=== PATIENT | male | born 1955 | race Caucasian/White ===

== ENCOUNTER 2023-02-18 08:29 | Emergency (ER) | payer MEDICARE, MEDICAID ==
[~2023-02-18] VITALS: Ht 182.9 cm; Wt 106.8 kg
[~2023-02-18 08:29] MED LIST: ALBU18HF2 INH; FLUT15.87 BOTHNARES; HYDR-3972 PO; LANTUS SQ; ZOLP10TA5 PO
[2023-02-18 08:57] VITALS: BP 158/96; PULSE 74; RESP 16; TEMP 98.4; O2SAT 96
[2023-02-18] MEDS ORDERED: TETanus/Pertussis (Acell)/Diphther VAC/PF (Tdap-Adult) 0.5ml syringe IMVAC ONE (11:10)
== END 2023-02-18 11:41 | disposition home or self-care (01) ==
LOC: ER 08:30
DX: S51.812A Laceration without foreign body of left forearm, initial encounter (principal); Z79.899 Other long term (current) drug therapy; Z79.84 Long term (current) use of oral hypoglycemic drugs; X58.XXXA Exposure to other specified factors, initial encounter; Y93.89 Activity, other specified; Y92.89 Other specified places as the place of occurrence of the external cause; Y99.8 Other external cause status
CPT/HCPCS: 90471; 90715; 99283; A6258

== ENCOUNTER 2024-02-05 11:38 | Emergency (ER) | payer MEDICARE, MEDICAID ==
[~2024-02-05] VITALS: Ht 182.9 cm; Wt 116.0 kg
--- NOTE | 2024-02-05 12:21 | NUR ---
Placed on CR, SPO2 and EtCO2 in preperation for sedation
--- NOTE | 2024-02-05 12:21 | NUR ---
Patient consented for conscious sedation, at bedside
[2024-02-05] MEDS: fentaNYL/PF 50MCG/1 ML 2ML syringe IV ONE (12:30)
[2024-02-05 13:02] VITALS: PULSE 65; RESP 18; O2SAT 95
[2024-02-05] MEDS: ondansetron/PF 4mg/2ml inj IV ONE (13:05)
[2024-02-05] MEDS: ketamine 10mg/ml 20ml inj vial IV ONE (13:06)
[2024-02-05 13:52] VITALS: BP 138/78; PULSE 67; RESP 16; TEMP 98; O2SAT 99
== END 2024-02-05 13:53 | disposition home or self-care (01) ==
LOC: ER 11:38
DX: S43.085A Other dislocation of left shoulder joint, initial encounter (principal); E11.9 Type 2 diabetes mellitus without complications; Z79.899 Other long term (current) drug therapy; Z79.52 Long term (current) use of systemic steroids; Z79.4 Long term (current) use of insulin; W01.0XXA Fall on same level from slipping, tripping and stumbling without subsequent striking against object, initial encounter; Y93.89 Activity, other specified; Y92.89 Other specified places as the place of occurrence of the external cause; Y99.8 Other external cause status
CPT/HCPCS: 23650; 73030; 96374; 96375; 99285; J2405; J3010; J3490; 94760; 99152

== ENCOUNTER 2024-07-24 09:07 | Day surgery (SDC) | payer MEDICARE, MEDICAID ==
[~2024-07-24] VITALS: Ht 182.9 cm; Wt 121.8 kg
[2024-07-24] VITALS (11 sets, daily range): BP systolic 123–177; BP diastolic 70–95; PULSE 62–73; RESP 16; TEMP 97.7; O2SAT 93–95
[2024-07-24] MEDS ORDERED: METF-1203 PO (09:53)
[2024-07-24] MEDS ORDERED: LORazepam 0.5 MG tablet PO PRN (09:55)
[2024-07-24] MEDS ORDERED: ATOR-2 PO (09:55)
[2024-07-24] MEDS ORDERED: nitroGLYCERIN 0.4mg SUBLingual tab SL PRN (09:55)
[2024-07-24] MEDS ORDERED: diphenhydrAMINE 25mg capsule PO PRN (09:55)
[2024-07-24] MEDS ORDERED: normal saline 1,000 ML IV SCH (09:55)
[2024-07-24] MEDS ORDERED: SEMA1PEN3 (09:56)
[2024-07-24 10:07] LABS: BASOPHILS # (AUTO) 0.1 X10'3 (0-0.2); BASOPHILS % (AUTO) 0.9 % (0-1); EOSINOPHILS # (AUTO) 0.2 X10'3 (0-0.9); EOSINOPHILS % (AUTO) 2.3 % (0-6); HEMATOCRIT 49.4 % (42.0-52.0); HEMOGLOBIN 16.7 g/dl (14.0-17.9); LYMPHOCYTES # (AUTO) 1.8 X10'3 (1.1-4.8); LYMPHOCYTES % (AUTO) 26.2 % (21-51); MEAN CORPUSCULAR HGB CONC 33.7 g/dL (33.0-36.5); MEAN PLATELET VOLUME 7.9 FL (7.4-10.4); MONOCYTES # (AUTO) 0.6 X10'3 (0-0.9); MONOCYTES % (AUTO) 8.1 % (2-12); NEUTROPHILS # (AUTO) 4.2 X10'3 (1.8-7.7); NEUTROPHILS % (AUTO) 62.5 % (42-75); PLATELET COUNT 188 X10'3 (140-440); RED BLOOD COUNT 5.37 X10'6 (4.70-6.10); RED CELL DISTRIBUTION WIDTH 14.2 % (11.5-14.5); WHITE BLOOD COUNT 6.8 X10'3 (4.5-11.0)
[2024-07-24 10:16] LABS: ALBUMIN 3.7 G/DL (3.4-5.0); ANION GAP 7 (8-16); BLOOD UREA NITROGEN 15 MG/DL (7-18); BUN/CREATININE RATIO 22.4 (10.0-20.0); CALCIUM 8.5 MG/DL (8.5-10.1); CHLORIDE 101 MMOL/L (99-107); CREATININE 0.67 MG/DL (0.60-1.10); GLUCOSE 162 MG/DL (70-104); SODIUM 137 MMOL/L (135-145); TOTAL CARBON DIOXIDE 28.8 MMOL/L (24-32); eCRCL 114 ML/MIN; eGFR > 90 ML/MIN
[2024-07-24] MEDS ORDERED: midazolam 1 mg/ML 2ml injection ONE (10:19)
[2024-07-24] MEDS ORDERED: fentaNYL/PF 50MCG/1 ML 2ML syringe ONE (10:19)
[2024-07-24] MEDS ORDERED: iohexol 350 MG/ML 50ML vial IV ONE ×2 (10:19→11:33)
[2024-07-24] MEDS ORDERED: LIDOcaine 1% 30ml preserv. free vial ONE (10:20)
[2024-07-24] MEDS ORDERED: iohexol 350MG/ML 100ml bottle IV ONE (10:20)
[2024-07-24 10:21] LABS: APTT 29 SECONDS (22-32); INR 1.1 INR
[2024-07-24] MEDS ORDERED: diphenhydrAMINE 50 mg/ml inj ONE (11:13)
[2024-07-24] MEDS ORDERED: OXAZEpam 15mg capsule PO PRN (12:30)
[2024-07-24] MEDS ORDERED: proCHLORperazine 10 MG/2 ml inj IV PRN (12:30)
[2024-07-24] MEDS ORDERED: HYDROcodone/acetaminophen 10/325mg tab PO PRN (12:30)
[2024-07-24] MEDS ORDERED: ondansetron/PF 4mg/2ml inj IV PRN (12:30)
[2024-07-24] MEDS ORDERED: HYDROcodone/acetaminophen 5mg/325mg tablet PO PRN (12:30)
== END 2024-07-24 17:05 | disposition home or self-care (01) ==
LOC: SSTAY O 09:07
PROVIDERS: ATTEND Internal Medicine Cardiovascular Disease
DX: I25.10 Atherosclerotic heart disease of native coronary artery without angina pectoris (principal); M19.012 Primary osteoarthritis, left shoulder; I10 Essential (primary) hypertension; E11.42 Type 2 diabetes mellitus with diabetic polyneuropathy; J44.9 Chronic obstructive pulmonary disease, unspecified; Z79.4 Long term (current) use of insulin; Z87.891 Personal history of nicotine dependence; Z96.612 Presence of left artificial shoulder joint; Z79.899 Other long term (current) drug therapy; Z79.84 Long term (current) use of oral hypoglycemic drugs; Z79.01 Long term (current) use of anticoagulants
CPT/HCPCS: 36415; 71046; 80048; 82948; 85025; 85610; 85730; 93005; 93458; 93880; 93930; 93970; 99152; 99153; A6258; C1760; J1200; J1644; J2003; J2250; J3010; J7030; Q9967; Z7610

== ENCOUNTER 2025-05-05 05:25 | Observation (INO) | payer MEDICARE, MEDICAID ==
[2025-04-22 11:48] LABS: MEAN PLATELET VOLUME 8.3 FL (7.4-10.4); PRE OP HEMATOCRIT 51.0 % (42.0-52.0); PRE OP HEMOGLOBIN 17.2 g/dL (14.0-17.9); PRE OP PLATELET COUNT 219 X10'3 (140-440); PRE OP WHITE BLOOD COUNT 7.1 10'3 (4.8-10.8); RED CELL DISTRIBUTION WIDTH 15.2 % (11.5-14.5)
[2025-04-22 11:59] LABS: PRE OP INR 1.1 INR; PRE OP PARTIAL THROMB. TIME 31.0 SECONDS (22-32); PRE OP PROTIME 11.1 SECONDS (9.0-12.0)
[2025-04-22 12:02] LABS: CREATININE 0.86 MG/DL (0.60-1.10); PRE OP ALT 45 U/L (30-65); PRE OP ANION GAP 11 (8-16); PRE OP AST 24 U/L (10-37); PRE OP BILIRUB, TOTAL 0.6 MG/DL (0.0-1.0); PRE OP GLUCOSE 122 MG/DL (70-104); PRE OP POTASSIUM 3.9 MMOL/L (3.4-5.1); PRE OP SODIUM 138 MMOL/L (135-145); TOTAL CARBON DIOXIDE 24.8 MMOL/L (24-32); eGFR 88 ML/MIN
[2025-04-22 12:19] LABS: LEUKOCYTE ESTERASE ,URINE NEGATIVE (Neg); NITRITES, URINE NEGATIVE (Neg); OCCULT BLOOD,URINE NEGATIVE (Neg)
[2025-04-22 12:20] LABS: UA COLLECTION TYPE NON-SPECIFIED
--- NOTE | 2025-04-22 13:09 | RADIOLOGY REPORT ---
DI CHEST,TWO VIEWS CLINICAL HISTORY: PREOP COMPARISON: DI CHEST,SINGLE VIEW on DOS: 08/02/24, DI CHEST,SINGLE VIEW on DOS: 08/01/24, DI CHEST,SINGLE VIEW on DOS: 07/31/24, DI CHEST,SINGLE VIEW on DOS: 07/30/24, DI CHEST,TWO VIEWS on DOS: 07/24/24 TECHNIQUE: Frontal and lateral view of the chest was obtained FINDINGS: Lines and Tubes: None Lungs: No focal consolidation. Pleura: No effusion. No pneumothorax. Cardiomediastinal contours: Unremarkable Bones: Median sternotomy IMPRESSION: No acute cardiopulmonary disease.
[2025-05-05] VITALS (18 sets, daily range): BP systolic 111–158; BP diastolic 68–88; PULSE 62–89; RESP 16–19; TEMP 97–98.4; O2SAT 91–98
[~2025-05-05] VITALS: Ht 182.9 cm; Wt 113.0 kg
[~2025-05-05 05:25] MED LIST changes: +ASPI-1265 PO; -FLUT15.87 BOTHNARES; +FURO20TA4 PO; -HYDR-3972 PO; +METF-1203 PO; +METO25TA6 PO; +POTA-206 PO; +SEMA2PEN SQ; -ZOLP10TA5 PO
[2025-05-05] MEDS: DOCUMENT DATE & TIME OF BETA-BLOCKER PO ONE (05:30)
[2025-05-05] MEDS: ceFAZolin 2gm/dext,iso 50mL 50 ML IV ONE (05:30)
[2025-05-05] MEDS: ringers solution, lacted 1,000 ML IV SCH ×2 (06:30→07:40)
[2025-05-05] MEDS: tranexamic acid 1gm/0.7% sal. 100 ML IV ONE (06:31)
[2025-05-05] MEDS ORDERED: cloNIDine hcl/PF 100mcg/ml inj ONE (07:05)
[2025-05-05] MEDS ORDERED: vancomycin 1,000mg inj ONE (07:18)
[2025-05-05] MEDS ORDERED: morphine 4 MG/ML inj SYRINge IV PRN (07:40)
[2025-05-05] MEDS ORDERED: ondansetron/PF 4mg/2ml inj IV PRN ×2 (07:40→07:50)
[2025-05-05] MEDS ORDERED: hydrALAZINE 20mg/ml inj. IV PRN (07:40)
[2025-05-05] MEDS ORDERED: labetalol 20mg/4ml (5mg/ml) syringe IV PRN (07:40)
[2025-05-05] MEDS ORDERED: HYDROmorphone/PF 0.2 MG/ML SYRINGE IV PRN ×2 (07:40)
[2025-05-05] MEDS ORDERED: acetaminophen 1,000mg/100ml IV 100 ML IV PRN (07:40)
[2025-05-05] MEDS ORDERED: PCA WASTE DOCUMENTATION 1 MG ML MC SCH (07:50)
[2025-05-05] MEDS ORDERED: magnesium hydroxide 30ml (MOM) UD suspension PO PRN (07:50)
[2025-05-05] MEDS ORDERED: HYDROcodone/acetaminophen 5mg/325mg tablet PO PRN (07:50)
[2025-05-05] MEDS ORDERED: bisacodyl 10mg suppository rectal RC PRN (07:50)
[2025-05-05] MEDS ORDERED: midazolam 1 mg/ML 2ml injection ONE (07:52)
[2025-05-05] MEDS ORDERED: ROPIVAcaine 0.5% (5mg/ml) 30ml vial ONE (08:51)
[2025-05-05] MEDS ORDERED: LIDOcaine 1%/PF 5ML 10 MG/ML VIAL ONE (08:51)
[2025-05-05] MEDS ORDERED: ondansetron/PF 4mg/2ml inj ONE (08:51)
[2025-05-05] MEDS ORDERED: LIDOcaine 2% (20mg/ml) 5ml vial ONE (08:51)
[2025-05-05] MEDS ORDERED: rocuronium 10mg/ml inj IV ONE (08:51)
[2025-05-05] MEDS ORDERED: propofol inj 20 ML IV ONE ×2 (08:51→09:53)
[2025-05-05] MEDS ORDERED: fentaNYL /PF 50mcg/ml 5ml ampule ONE (08:51)
[2025-05-05] MEDS ORDERED: dexamethasone sod phosphate 4mg/ml inj. ONE (08:52)
[2025-05-05] MEDS: vancomycin 1,000mg inj IVT ONE (09:22)
[2025-05-05] MEDS ORDERED: glycopyrrolate 0.2mg/ml inj ONE (10:07)
--- NOTE | 2025-05-05 10:47 | OPERATIVE REPORT ---
Operative Report Providers to ~ Date of Procedure: May 05, 2025 Pre-Operative Diagnosis: L shoulder massive cuff tear Post-Operative Diagnosis SAME as PRE-Op Procedure Performed Left reverse total shoulder arthroplasty and biceps tenodesis Surgeon: David Woo MD Clerk Travel Reservations Dr. Buchanan Anesthesiologist: Aleksandra Castanon Type of Anesthesia: General, Regional Findings: Left proximal humerus was devoid of any remaining soft tissue attachments of the rotator cuff. I did not see any attachment of the supraspinatus or infraspinatus. There was only a very small amount of inferior capsular tissue and maybe some residual subscapularis but definitely not functional tissue. The biceps was subluxed medially and flattened out especially proximally. Complications None Prosthetics\Implants used: Shoulder innovations inset 95 size eight humeral component with a plus six humeral tray and +0 polyethylene liner. On the glenoid side, a 10 degree posterior superior augmented base plate was used with a 36 diameter, plus six lateralized glenosphere Estimated Blood Loss: 150 cc Specimen Removed: None Description of Procedure: Patient is brought to the operating. Placed in a supine position. Preoperative antibiotics of 2 g of Ancef were given along with 1 g of TXA. General plus regional anesthesia was performed. The patient was then positioned in a modified beach chair position. Bony prominences were well padded. Bilateral lower extremity SCDs were placed. The left upper extremity was prepped and draped in the usual sterile fashion. A time-out procedure was performed as per routine identifying the patient, left shoulder to be operated on, left shoulder block, 2 g of Ancef, 1 g of TXA. Plan is a left reverse shoulder replacement verify during the time-out. Dr. Buchanan is a patient observation assistant was necessary for this case. He is familiar with my proximal humeral dissection techniques and placement of retractors to help facilitate proper humeral preparation. More importantly, he is familiar with retractor placement around the glenoid and this facilitates proper and accurate glenoid preparation and implant placement. Without his help, the surgery would not go as smoothly, quickly, or safely. I began with the left shoulder deltopectoral incision. Cephalic vein was identified and taken laterally with the deltoid. Unfortunately, it did tear d uring the procedure so it had to be tied off distally. I developed the deltopectoral interval and subdeltoid space. Retractors were placed under the deltoid. The shoulder was subluxed anteriorly. I bluntly dissected under the conjoined tendon. There was scarring in this region likely due to the torn and retracted subscapularis. Biceps tendon was subluxed medially. I brought it back laterally and then tenodesed it to the upper portion of the pectoralis major. I tracked the biceps all the way proximally up until it went into the rotator interval and I resected it there. There was again no tissue resembling the subscapularis except for right by the calcar which was peeled off in a subperiosteal fashion. There was no remaining cuff on the tuberosity. Shoulder was dislocated anteriorly. Again I visualized no remaining rotator cuff. At this point, I estimated my neck cut. I opal a line on the anatomic neck at approximately 132.5 of neck shaft inclination. I chose 20 of retroversion. I used a high-speed oscillating saw to make my neck cut. I then removed any bone and osteophytes posteriorly and inferiorly. I then placed sounding reamers all the way up to a size 12. I then started a size six broach and went up to a size eight before I had reasonable stability. I then reamed for the proximal humeral tray. I then placed a cut protector. I moved onto the glenoid. Retractors were placed carefully around the glenoid especially superiorly and posteriorly to start. I then resected the residual portion of the biceps from the biceps anchor. I any labrum. Once I did this, I could place a retractor directly on bone anteriorly. I carefully dissected under the glenoid and placed a retractor to push the axillary nerve inferiorly. I then released tissue around the inferior aspect of the glenoid for good visualization. After this, had excellent visualization of the glenoid. I removed any residual cartilage with a Chandra elevator. I then estimated my center point. I then referenced my 3D preoperative plan. It called for a 10 degree angled base plate at approximately the 2:30 position. I placed the angled guide and placed a bico rtical pin. This was then checked on C-arm. I liked its position. I then used a 10 degree angled Reamer and reamed for my base plate with the maximum correction at the 2:30 position. I then drilled for the center post. The area was irrigated with IrriSept. I then placed a definitive implant which was a 10 degree augmented base plate with the maximum correction at 2:30.. I then impacted it. Had good Press-Fit. I then placed a center compression screw with excellent purchase. I then placed four peripheral locking screws. The base plate was very stable. I then used a 36 diameter peripheral Reamer to clear bone away. I irrigated the area. I dried the taper. I then placed a 36 diameter, plus six lateralized glenosphere by impacting the taper, testing the taper, and then we impacting the taper. I then moved back to the humerus. I trialed a +0 tray and +0 liner and reduced the shoulder. It was very loose. I then went up to a plus three polyethylene liner. This still did not have good enough stability as I could dislocate it with a lateral Shuck maneuver. Given the fact that the patient had no rotator cuff, I wanted increased stability so I went up to a plus six tray and +0 liner. This had a much better positive reduction feel. I could not dislocate it with a lateral Shuck maneuver. Stable range of motion was internal rotation to the belly, external rotation to 70, e asy overhead motion. Abduction external rotation to 100 and abduction internal rotation to 45. I felt this was a good construct. Confirmed good position of all implants and good overall alignment. I then dislocated the shoulder. Trial components were removed. The shoulder was irrigated with IrriSept while the definitive implant was opened on the back table which was a size eight inset 95 humeral component with a plus six humeral tray and +0 humeral liner. Once it was assembled in standard fashion it was given to me. I placed it into the prepared site on the humerus. I impacted it into place. It had excellent Press-Fit. It had no sign of lack of fixation with axial and rotational stress. I then reduced the shoulder with the same reduction feel and stability as noted above. Final fluoroscopy images were taken and I was happy with the construct. Those images were saved. Shoulder was then irrigated with a full bottle of IrriSept followed by 3 L of pulse lavage irrigation. I attempted to do an axillary nerve tug test but given the amount of scar tissue from the displaced subscapularis, I could not really feel the axillary nerve. That being said, all of my dissection was done lateral to the conjoined tendon and directly on bone when dissecting near the calcar so I think my risk of injury to the axillary nerve is small. I did not feel was indicated to dissect for it as I felt there was more risk to it trying to dissect the scar tissue under the conjoined tendon. So at this point, I had adequate hemostasis with Vistaseal spray. I then placed 1 g of vancomycin powder adjacent to the implant. The deltopectoral interval was closed with FiberWire suture. Deep layers were closed with 0 Vicryl suture, subcutaneous layers were closed with 2-0 Vicryl suture and skin was closed with 3-0 Stratafix suture. Final sponge and needle counts were correct. Wound was sealed with a Dermabond adhesive dressing and covered with an island dressing. Arm was placed in an abduction shoulder orthotic that was definitively fit to the patient in the operating. The purpose of this is to protect the shoulder and the patient during the perioperative period from high-risk activities that could dislocate the shoulder. Patient was thereafter recovered without complications and sent to recovery in good condition. Counts repoted as correct: Yes X-Ray findings: No Foreign body DAVID WOO MD May 05, 2025 10:47
[2025-05-05] MEDS ORDERED: FLU VACC TS2025-26(6MOS UP)/PF (FLULAVAL) 45 MCG/0.5 ML SYRINGE IMVAC ONE (12:10)
--- NOTE | 2025-05-05 12:22 | RADIOLOGY REPORT ---
EXAM: DI SHOULDER, COMPLETE (MIN 2 VWS), CATH HEART CATH W/WO STENT, DI FLUORO UP TO 1HOUR, DI SHOULDER, COMPLETE (MIN 2 VWS) CLINICAL INDICATION: post op,left TECHNIQUE: DI SHOULDER, COMPLETE (MIN 2 VWS), CATH HEART CATH W/WO STENT, DI FLUORO UP TO 1HOUR, DI SHOULDER, COMPLETE (MIN 2 VWS) Comparison: DI SHOULDER, COMPLETE (MIN 2 VWS) on DOS: 02/05/24, DI SHOULDER, COMPLETE (MIN 2 VWS) on DOS: 02/05/24 FINDINGS/IMPRESSION: Status post left total shoulder arthroplasty... Expected postsurgical changes
[2025-05-05] MEDS: potassium cl 20mEq in 1/2 NS 1,000 ML IV SCH (12:45)
[2025-05-05] MEDS: ceFAZolin 2gm/dext,iso 50mL 50 ML IV SCH (16:33)
[2025-05-05] MEDS: INSULIN LISPRO 100 UNIT/ML INSULN.PEN MULTI-DOSE SQ SCH ×2 (18:00→22:45)
[2025-05-05] MEDS: insulin glargine (Lantus) pen - multi-dose SQ SCH (20:14)
[2025-05-06 06:00] VITALS: BP 133/74; PULSE 78; RESP 18; TEMP 97.3; O2SAT 96
[2025-05-06 06:07] LABS: MEAN PLATELET VOLUME 8.7 FL (7.4-10.4); RED CELL DISTRIBUTION WIDTH 14.5 % (11.5-14.5)
[2025-05-06 06:32] LABS: CREATININE 0.83 MG/DL (0.60-1.10); TOTAL CARBON DIOXIDE 26.6 MMOL/L (24-32); eCRCL 91 ML/MIN; eGFR > 90 ML/MIN
--- NOTE | 2025-05-06 07:49 | PROGRESS NOTE ---
Progress Note Orthopedic Ortho Post Op Day #: 1 Ortho Consult Progress Note POD #1 L RSA and bicep tenodesis Central Line/PICC still needed: N\A [place] Catheter still needed?: N\A Subjective Patient has no complaints of pain this am. Called overnight for blood sugar issues. Objective Vital Signs Date Time Temp Pulse Resp B/P (MAP) Pulse Ox O2 Delivery O2 Flow Rate FiO2 05/06/25 06:00 97.3 78 18 133/74 (93) 96 Room Air 05/05/25 11:20 0.0 Result Diagram: 05/06/2552205/06/25522 Alert and Oreinted x4, Appropriate, Vital signs are stable, In no acute distress Objective Sling in place on the L shoulder. Dressings clean, dry, and intact without strikethrough. Axillary nerve sensation intact but diminished with light touch. 2+ radial pulse. Median, radial, and ulnar nerve motor and sensory functions intact but sensory is globally diminished. Lab Results comments Labs reviewed and are appropriate for post op day #1 Other Results Post op xrays reviewed. No visible complications. No fractures or dislocations noted Problem/Assessment/Plan Assessment\Plan: Doing Well, Anticipate disch to home Doing well and recovering as expected. Labs ok. Vitals stable. Post op labs are WNL. Pain controlled. IV abx completed. OK to d/c home today if cleared by PT. D/c instruction sheet to be sent home with patient. Nurse aware of the instruction sheet. In brief: 1) No L shoulder ROM x 2 weeks. 2) sling at all times 3) Must move elbow to prevent stiffness 4) strict NWB LUE 5) Resume all normal meds including aspirin 6) Dressing care as noted on d/c instructions 7) PT to start in 2 weeks 8) follow up with Dr. Woo in 2 weeks. JAIRO WOO MD May 06, 2025 07:49
--- NOTE | 2025-05-06 07:52 | DISCHARGE SUMMARY ---
Discharge Summary Providers to CC ~ Discharge Summary Admission Diagnosis: L shoulder massive cuff tear Hospital Course DATE OF ADMISSION: 05/05/25 DATE OF DISCHARGE:05/06/25 Discharge Diagnosis\Comment: L shoulder massive rotator cuff tear. Operations\Procedures: 05/05/25: patient underwent a L RSA without complications Consultants: None Complications: none Condition on DC: Stable Discharge Summary: Patient underwent surgery on 05/05/25 without complications. Admitted overnight for routine care. IV abx x 2 doses. Pain controlled with regional block and oral meds. Post op labs ok. Vitals signs stable. Patient to be seen and cleared by PT. OK to d/c with the following notes; Doing well and recovering as expected. Labs ok. Vitals stable. Post op labs are WNL. Pain controlled. IV abx completed. OK to d/c home today if cleared by PT. D/c instruction sheet to be sent home with patient. Nurse aware of the instruction sheet. In brief: 1) No L shoulder ROM x 2 weeks. 2) sling at all times 3) Must move elbow to prevent stiffness 4) strict NWB LUE 5) Resume all normal meds including aspirin 6) Dressing care as noted on d/c instructions 7) PT to start in 2 weeks 8) follow up with Dr. Woo in 2 weeks. *Problems/Diagnosis: (1) Unspecified rotator cuff tear or rupture of left shoulder, not specified as traumatic Status: Resolved Total Time Spent on D/C: Up to 30 Minutes Counseling Services Smoking & Tobacco Cessation: N/A Problem Qualifiers (1) Unspecified rotator cuff tear or rupture of left shoulder, not specified as traumatic: Qualified Codes: M75.122 - Complete rotator cuff tear or rupture of left shoulder, not specified as traumatic JAIRO WOO MD May 06, 2025 07:52
[2025-05-06 10:00] VITALS: BP 125/72; PULSE 79; RESP 18; TEMP 97.6; O2SAT 95
[2025-05-06] MEDS ORDERED: PNEUMOC 20-VAL CONJ-DIP CRM/PF 0.5 ML SYRINGE IMVAC ONE (10:00)
[2025-05-06 11:20] VITALS: RESP 15
[2025-05-06] MEDS: HYDROcodone/acetaminophen 5mg/325mg tablet PO PRN (11:20)
[2025-05-06] MEDS: PNEUMOC 20-VAL CONJ-DIP CRM/PF 0.5 ML SYRINGE IMVAC ONE (11:24)
[2025-05-06] MEDS: FLU VACC TS2025-26(6MOS UP)/PF (FLULAVAL) 45 MCG/0.5 ML SYRINGE IMVAC ONE (11:26)
== END 2025-05-06 15:07 | disposition home or self-care (01) ==
LOC: PAS 05:25 → ORTHO 4S 07:54 → PAS 12:36
PROVIDERS: ADMIT Specialist; ATTEND Specialist
DX: M75.122 Complete rotator cuff tear or rupture of left shoulder, not specified as traumatic (principal); S40.212A Abrasion of left shoulder, initial encounter; E11.9 Type 2 diabetes mellitus without complications; I10 Essential (primary) hypertension; J44.9 Chronic obstructive pulmonary disease, unspecified; Z98.890 Other specified postprocedural states; Z98.49 Cataract extraction status, unspecified eye; Z79.01 Long term (current) use of anticoagulants; Z79.899 Other long term (current) drug therapy; X58.XXXA Exposure to other specified factors, initial encounter; Y93.89 Activity, other specified; Y92.89 Other specified places as the place of occurrence of the external cause; Y99.8 Other external cause status
CPT/HCPCS: 23430; 23472; 71046; 73030; 80053; 81003; 82948; 83036; 85610; 85730; 86885; 86900; 86901; 90677; 96365; 96366; 97161; A4618; A7000; C1713; C1776; G0378; J0690; J1815; J2710; J3480; J3490; J7120; 36415; 76000; 85025; 87081; 90471; 90732; 97530; A6455; G0009; J0735; J1100; J2003; J2250; J2405; J2704; J2795; J3010; J3373